=== PATIENT | male | born 1940 | race Caucasian/White ===

== ENCOUNTER → 2021-01-17 15:59 | Outpatient (CLI) | payer MEDICARE, SELFPAY ==
--- NOTE | 2021-01-17 | DI.ECHO.S_ITS ---
[place] [facility]---------+ [facility] +---------+ : : [address] : : : : [id number] : : : : Phone: [phone]+ Echocardiogram Report + + :Name: SHARON MANE Study Date: 01/17/2021 Height: 67 in : :[facility] ReadingLocation: Weight: 175 lb : : Gender: Male BSA: 1.9 m2 : :: 1940 Age: 80 yrs BP: 138/84 mmHg: :Reason For Study: ABNORMAL RESULT OF OTHER CARDIOVASCULAR : :FUNCTION STUDIES : :Ordering Physician: ARVIN, : :HAILEE Navarro Performed By: Pricilla Charles : :Referring: HAILEE PISANO : + + Interpretation Summary The ejection fraction is estimated to be 65-70%. Normal diastolic function. Normal right ventricular systolic function. Mild aortic regurgitation. Unable to estimate PASP. Procedure: A two-dimensional transthoracic echocardiogram with color flow and Doppler was performed. The study quality was technically adequate. There is no prior echocardiogram noted for this patient. The patient was in sinus rhythm with heart rates between 60-68 bpm during the exam. Left Ventricle: The left ventricle is normal in size and wall thickness. The ejection fraction is estimated to be 65-70%. Diastolic parameters suggest probable normal left ventricular diastolic function and normal filling pressures. Right Ventricle: The right ventricle is normal in size and function. Atria: Both atria are normal in size. There is no Doppler evidence for an interatrial shunt. Mitral Valve: The mitral valve is normal in structure and function. There is trace mitral regurgitation. Aortic Valve: The aortic valve is mildly calcified. The aortic valve opens well. The aortic valve is trileaflet. There is no aortic valve stenosis. There is mild aortic regurgitation. Tricuspid Valve: The tricuspid valve is normal in structure and function. There is trace tricuspid regurgitation. Pulmonary artery pressures cannot be estimated because of the lack of a measurable TR jet velocity. Pulmonic Valve: The pulmonic valve is not well visualized. There is mild pulmonic regurgitation. Great Vessels: The aortic root is normal size. The ascending aorta is mildly enlarged. The IVC is of normal diameter and collapses greater than 50% with a sniff. This suggests a low right atrial pressure of 3 mm Hg. Pericardium/ Pleura There is no pericardial effusion. There is no pleural effusion. MMode/2D Measurements & Calculations LVIDd: 5.1 cm LVOT diam: 2.1 cm LVIDs: 3.1 cm Ao root diam: 3.8 cm FS: 38.8 % asc Aorta Diam: 3.5 cm IVSd: 0.73 cm Ao Arch Diam (Prox Trans): 2.5 cm LVPWd: 0.69 cm LV dodson. diameter/BSA (cm/m^2): 2.7 LV sys. diameter/BSA (cm/m^2): 1.6 LA A2 area: 20.7 cm2 RA long axis: 4.9 cm LA A4 area: 14.1 cm2 RA area: 14.4 cm2 LA length (vol): 4.6 cm RA vol: 35.9 ml LA vol: 54.2 ml RA : 18.8 ml/m2 LA vol index: 28.4 ml/m2 IVC diam: 1.3 cm RVD1 (basal): 2.9 cm TAPSE: 1.9 cm Doppler Measurements & Calculations Ao V2 max: 132.1 cm/sec LVOT Max Evangelista: 89.6 cm/sec Ao V2 mean: 86.2 cm/sec LV V1 max P.2 mmHg Ao max P.0 mmHg LV V1 VTI: 20.2 cm Ao mean P.3 mmHg DIPESH(I,D): 2.7 cm2 Ao V2 VTI: 27.6 cm DIPESH(V,D): 2.5 cm2 sev ratio: 0.73 DIPESH indexed to BSA (cm^2/m^2): 1.4 AI P1/2t: 517.9 msec AI dec slope: 272.3 cm/sec2 MV E max evangelista: 104.9 cm/sec PA V2 max: 105.8 cm/sec MV A max evangelista: 110.3 cm/sec PA V2 mean: 69.9 cm/sec MV E/A: 0.95 PA mean P.3 mmHg Med Peak E' Evangelista: 7.6 cm/sec PA pr(Accel): 20.8 mmHg E/E' med: 13.8 Lat Peak E' Evangelista: 8.9 cm/sec E/E' lat: 11.8 E/e' average: 12.8 MV dec time: 0.26 sec SV(LVOT): 73.2 ml Reading Physician:04:58 PM
== END ==
PROVIDERS: Referring Provider Internal Medicine Cardiovascular Disease; Visit Provider Internal Medicine Cardiovascular Disease
DX: I35.1 Nonrheumatic aortic (valve) insufficiency (principal); R94.39 Abnormal result of other cardiovascular function study
CPT/HCPCS: 93306